=== PATIENT | male | born 1955 ===

== ENCOUNTER 2017-06-17 13:45 | Day surgery (SDC) | payer BC ==
[~2017-06-17 13:45] MED LIST: Buffered Lidocaine 0.9% SYRIN* 5 ML/SYR SYRINGE INTRADERM ONE; DiMENhydriNATE IV* 50 MG/ML VIAL IV PUSH PRN; Famotidine IV* 10 MG/ML 2 ML (20 mg) IV ONE; Morphine INJ* 2 MG/ML 1 ML CARPUJECT IV PRN; Ondansetron INJ* 2 MG/ML VIAL IV PRN; PROCHLORPERAZINE INJ 5 MG/ML 2 ML VIAL IV PRN; fentaNYL* 50 MCG/ML 2 ML VIAL (100 MCG VIAL) IV PRN; oxyCODONE/Acetamin 5/325 MG* TAB PO PRN
[2017-06-17] MEDS ORDERED: fentaNYL* 50 MCG/ML 2 ML VIAL (100 MCG VIAL) ONE (14:28)
[2017-06-17] MEDS ORDERED: KETAMINE HCL* 50 MG/ML 10 ML VIAL ONE (14:29)
[2017-06-17] MEDS ORDERED: Midazolam* 1 MG/ML 10 ML VIAL (10 MG) ONE (14:29)
[2017-06-17] MEDS ORDERED: Dexamethasone IV* 4 MG/ML 1 ML (4 MG) ONE (15:02)
[2017-06-17] MEDS ORDERED: Lidocaine 1% INJ* 10 MG/ML 30 ML SDV ONE (15:02)
[2017-06-17] MEDS ORDERED: Bupivacaine 0.25% SDV* 30 ML ONE (15:02)
[2017-06-17] MEDS ORDERED: Ondansetron INJ* 2 MG/ML VIAL ONE (16:13)
[2017-06-17] MEDS ORDERED: Propofol* 10 MG/ML 20 ML BTL IV PUSH ONE (16:13)
[2017-06-17] MEDS ORDERED: Lidocaine 2% PF * 5 ML VIAL ONE (16:13)
[2017-06-17] MEDS ORDERED: Metoprolol Tartrate IV* 1 MG/ML 5 ML VIAL ONE (16:14)
[2017-06-17] MEDS ORDERED: oxyCODONE/Acetamin 5/325 MG* TAB ONE (17:13)
[2017-06-17 18:12] VITALS: BP 154/86
--- NOTE | 2017-06-18 04:42 | OP ---
DATE OF OPERATION: 06/17/17 [facility] DATE OF : 55 SURGEON: Vignesh Her DPM ANESTHESIOLOGIST: Stuart Maldonado MD ANESTHESIA: MAC local. PRE-OP DIAGNOSIS: Right talus bunion. POST-OP DIAGNOSIS: Right talus bunion. OPERATIVE PROCEDURE: Resection of the right 5th metatarsal head. ESTIMATED BLOOD LOSS: Less than 10 cc. IV FLUIDS: LR 1000 cc. DRAINS: None. SPECIMENS: Bone from the right metatarsal head. DESCRIPTION OF PROCEDURE: The patient was placed taken to the operating room and was placed in supine position. Time-out was called and the OR team agreed. The right foot was then blocked with 10 cc of 1% lidocaine plain in a Raygoza block fashion to the base of the right 5th metatarsal. The foot was then prepped and draped in a sterile manner and the right foot was exsanguinated with an Esmarch bandage and the cuff was inflated to 250 mmHg. Attention was paid to the right 5th metatarsophalangeal joint and there was painful exostosis both dorsally and plantarly. I proceeded to make a linear incision to the right 5th joint with a #15 blade. Incision was then taken down to the deeper tissues starting from the epidermis, dermis, subcutaneous and the deep fascia. Once I cut the deep fascia, the capsule was incised and then the 5th metatarsophalangeal joint was in full view. I proceeded to free up the lateral collateral ligaments and I used a sagittal saw to resect the head. This completed the procedure. The wound was then irrigated and closed in a layered anatomical fashion. The patient tolerated the procedure and anesthesia well. The foot was then placed in a dry sterile dressing after I injected 8 mg of 0.25 % Marcaine plain and 8 mg of dexamethasone phosphate. The patient was taken to Recovery in stable condition and was later discharged in stable condition as well. [id number]/[facility] #: [id number] MTDD
== END 2017-06-17 18:14 | disposition home or self-care (01) ==
LOC: OR 13:45
PROVIDERS: ATTEND Podiatrist
DX: M21.621 Bunionette of right foot (principal); K21.9 Gastro-esophageal reflux disease without esophagitis; E05.90 Thyrotoxicosis, unspecified without thyrotoxic crisis or storm
CPT/HCPCS: A9270-GY; J1100; J2250; J2405; J2704; J3010; J3490